=== PATIENT | female | born 2000 | race Caucasian/White ===

== ENCOUNTER 2021-02-25 14:50 | Emergency (ER) | payer BC ==
[~2021-02-25] VITALS: Ht 154.9 cm; Wt 52.2 kg
[2021-02-25 14:56] VITALS: BP 132/75
--- NOTE | 2021-02-25 15:20 | NUR ---
Dr. Colvin is evaluating the patient at bedside.
[2021-02-25] MEDS ORDERED: KETOROLAC 30 MG/ML VIAL IM ONE (15:25)
[2021-02-25] MEDS ORDERED: ACETAMINOPHEN EXTRA STRENGTH 500 MG TAB PO ONE (15:25)
[2021-02-25 16:30] LABS: BASOPHILS % (AUTO) 0.6 % (0.0-2.0); HEMATOCRIT 39.1 % (36-48); HEMOGLOBIN 13.4 g/dL (12.0-16.0); LYMPHOCYTES # (AUTO) 0.7 K/uL (2.5-16.5); LYMPHOCYTES % (AUTO) 9.6 % (20.5-51.1); MEAN CORPUSCULAR HEMOGLOBIN 31 pg (27-31); MEAN CORPUSCULAR HGB CONC 34 g/dL (33-37); MEAN CORPUSCULAR VOLUME 89.5 fL (80-94); MONOCYTES # (AUTO) 0.8 K/uL (0.8-1.0); MONOCYTES % (AUTO) 11.9 % (1.7-9.3); NEUTROPHILS # (AUTO) 5.5 K/uL (1.8-7.7); NEUTROPHILS % (AUTO) 77.9 % (42.2-75.2); PLATELET COUNT (AUTO) 212 K/uL (140-450); RED BLOOD CELL COUNT(AUTO) 4.37 MIL/uL (4.20-5.40); RED CELL DISTRIBUTION WIDTH 12.4 % (11.6-13.7); WHITE BLOOD COUNT (AUTO) 7.1 K/uL (4.5-11.0)
[2021-02-25 16:50] LABS: ALBUMIN 4.2 g/dL (3.4-5.0); ANION GAP 12.7 (8-16); CARBON DIOXIDE 23.7 mmol/L (21-32); CREATININE 0.9 mg/dL (0.6-1.3); POTASSIUM 3.4 mmol/L (3.5-5.1)
--- NOTE | 2021-02-25 17:13 | NUR ---
Patient taken to CT scan via wheelchair by tech.
[2021-02-25] MEDS ORDERED: NACL 0.9% 1,000 ML IV ONE (17:35)
[2021-02-25 17:42] VITALS: BP 93/63
--- NOTE | 2021-02-27 21:41 | NUR ---
LATE ENTRY- NORMAL SALINE 0.9% DISCONTINUED AT 1900
== END 2021-02-25 18:55 | disposition home or self-care (01) ==
LOC: MED 14:50
DX: R07.9 Chest pain, unspecified (principal); T50.B95A Adverse effect of other viral vaccines, initial encounter; Y92.89 Other specified places as the place of occurrence of the external cause
CPT/HCPCS: 36415; 71275; 80053; 84484; 85025; 93005; 96360; 96372; 99285; J1885; J7030; Q9967

== ENCOUNTER 2024-05-28 22:40 | Emergency (ER) | payer BC ==
[~2024-05-28] VITALS: Ht 154.9 cm; Wt 54.4 kg
[2024-05-28 23:05] VITALS: BP 116/66; PULSE 82; RESP 16; TEMP 97.4; O2SAT 99
== END 2024-05-28 23:27 | disposition left against medical advice (07) ==
LOC: MED 22:40
DX: R05.9 Cough, unspecified (principal); Z53.21 Procedure and treatment not carried out due to patient leaving prior to being seen by health care provider

== ENCOUNTER 2024-05-31 09:42 | Emergency (ER) | payer BC ==
[~2024-05-31] VITALS: Ht 154.9 cm; Wt 55.8 kg
[2024-05-31 09:51] VITALS: BP 99/64; PULSE 86; RESP 18; TEMP 98.4; O2SAT 99
[2024-05-31] MEDS ORDERED: BENZ200C4 PO (10:32)
[2024-05-31] MEDS ORDERED: ALBU0.0912 IH (10:32)
[2024-05-31] MEDS ORDERED: AZIT250T4 PO (10:32)
[2024-05-31 10:37] VITALS: BP 102/66; PULSE 88; RESP 16; TEMP 98.1; O2SAT 99
== END 2024-05-31 10:27 | disposition home or self-care (01) ==
LOC: MED 09:42
DX: J40 Bronchitis, not specified as acute or chronic (principal); Z79.2 Long term (current) use of antibiotics; Z79.899 Other long term (current) drug therapy
CPT/HCPCS: 71045; 99283